=== PATIENT | female | born 1975 | race Caucasian/White ===

== ENCOUNTER 2020-05-28 10:12 | Observation (INO) | payer MEDICAID ==
[2020-05-28] MEDS ORDERED: ASPIRIN 81 MG PO STA (10:20)
[2020-05-28] MEDS ORDERED: MORPHINE SULFATE 2 MG/ML SYRINGE IVP STA (10:24)
[2020-05-28] MEDS ORDERED: NITROGLYCERIN SL TABS 0.4 MG TAB SUBLINGUAL PRN ×2 (10:24→12:39)
[2020-05-28] MEDS ORDERED: LORazepam 2 MG/ML INJ IV STA (10:27)
--- NOTE | 2020-05-28 10:31 | ED ---
Chest Pain HPI - General Source: patient Limitations: no limitations <Kiana Madrigal - Last Filed: 05/28/20 14:29> <Melissa Beebe - Last Filed: 06/02/20 22:19> - General Chief Complaint: Chest Pain Stated Complaint: Light Headed Time Seen by Provider: 05/28/20 10:19 - History of Present Illness Initial Comments: 44-year-old feel presented for left arm pain x ~8 hours and chest pressure x 8AM. Patient states last night she had significant left arm pain. She states she thought she just stepped wrong. Patient states she woke up this morning with chest pressure, a lot of anxiety and felt short of breath. Patient denies any back pain wrapping K sensation she states this is a pressure. She denies diaphoresis. Patient states ever since she's had a stroke she has been very paranoid. Patient admits to history of hypertension, she's occurring every day smoker. Denies known HLD, or CAD. Patient states she is currently having the discomfort. Patient appears anxious. (Kiana Madrigal) - Related Data Home Medications Medication Instructions Recorded Confirmed Aspirin EC [Ecotrin Low Dose] 81 mg PO DAILY 05/28/20 05/28/20 Cholecalciferol (Vitamin D3) 4,000 unit PO DAILY 05/28/20 05/28/20 [Vitamin D3 (4,000 Iu)] Losartan [Cozaar] 50 mg PO DAILY 05/28/20 05/28/20 Potassium Chloride [Klor-Con 20] 40 meq PO DAILY 05/28/20 05/28/20 Potassium Gluconate 198 mg PO ONCE 05/28/20 05/28/20 amLODIPine [Norvasc] 10 mg PO DAILY 05/28/20 05/28/20 hydroCHLOROthiazide 50 mg PO DAILY 05/28/20 05/28/20 medroxyPROGESTERone [Depo-Provera] 150 mg IM Q90D 05/28/20 05/28/20 Previous Rx's Medication Instructions Recorded Nicotine 14Mg/24Hr Patch [Habitrol] 1 patch TRANSDERM DAILY #30 patch 05/29/20 Allergies Allergy/AdvReac Type Severity Reaction Status Date / Time No Known Allergies Allergy Verified 05/28/20 10:58 Review of Systems ROS Other: All systems not noted in ROS Statement are negative. <Kiana Madrigal - Last Filed: 05/28/20 14:29> ROS Other: All systems not noted in ROS Statement are negative. <Melissa Beebe - Last Filed: 06/02/20 22:19> ROS Statement: Those systems with pertinent positive or pertinent negative responses have been documented in the HPI. Past Medical History Additional Past Medical History / Comment(s): Stroke 2018 History of Any Multi-Drug Resistant Organisms: None Reported Past Surgical History: Appendectomy, Section Smoking Status: Current every day smoker Past Alcohol Use History: Daily Past Drug Use History: None Reported - Past Family History Father Family Medical History: CVA/TIA, Myocardial Infarction ([place]) Additional Family Medical History / Comment(s): Father had a MN at the age of 49 yrs. Mother Family Medical History: Thyroid Disorder <Kiana Madrigal - Last Filed: 05/28/20 14:29> General Exam Limitations: no limitations <Kiana Madrigal - Last Filed: 05/28/20 14:29> - General Exam Comments Initial Comments: General: The patient is awake and alert, in no distress Eye: Pupils are equal, round and reactive to light, extra-ocular movements are intact. No nystagmus. There is normal conjunctiva bilaterally. No signs of icterus. Ears, nose, mouth and throat: There are moist mucous membranes and no oral lesions. Neck: The neck is supple, there is no tenderness or JVD. Cardiovascular: There is a regular rate and rhythm. No murmur, rub or gallop is appreciated. Respiratory: Lungs are clear to auscultation, respirations are non-labored, breath sounds are equal. No wheezes, stridor, rales, or rhonchi. Gastrointestinal: Soft, non-distended, non-tender abdomen without masses or organomegaly noted. There is no rebound or guarding present. Musculoskeletal: Normal ROM, no tenderness. Strength 5/5. Sensation intact. radial and DP pulses equal bilaterally 2+. Neurological: A&O x 3. CN II-XII intact, There are no obvious motor or sensory deficits. Coordination appears grossly intact. Speech is normal. Skin: Skin is warm and dry and no rashes or lesions are noted. calf pain no lower extremity edema swelling. Psychiatric: Cooperative, appropriate mood & affect, normal judgment. (Kiana Madrigal) Course Vital Signs 05/28/20 05/28/20 05/28/20 10:15 10:34 10:35 Temperature 97.8 F Pulse Rate 127 H 126 H Respiratory 16 20 20 Rate Blood Pressure 148/100 O2 Sat by Pulse 96 99 Oximetry 05/28/20 05/28/20 10:52 11:46 Temperature Pulse Rate 111 H 113 H Respiratory 18 18 Rate Blood Pressure 141/88 143/98 O2 Sat by Pulse 99 98 Oximetry Chest Pain MDM <Kiana Madrigal - Last Filed: 05/28/20 14:29> <Melissa Beebe - Last Filed: 06/02/20 22:19> - MDM 44yo female presenting for cc of chest discomfort/anxiety. asporin given. nitroglyceriin given. initial troponin negative. CTA negative for dissection. No obvious pulmonary embolism. Patient dimer (-). Pt pain improved. pt appears more relaxed. patient has no additional complaints. upon arrival patient appears well nontoxic in no aute distress. Dr. Beebe agreeable to care plan and admission. (Kiana Madrigal) I was available for consultation in the emergency department. The history and physical exam were done by the midlevel provider. I was consulted for this patients care. I reviewed the case with the midlevel provider and based on their presentation of the patient, I agree with the assessment, medical decision making and plan of care as documented. Chart was dictated using [employer] dictation software. Attempts were made to correct any dictation errors however some typographical errors may persist. Patient was seen during a national state of emergency due to the Covid-19 pandemic. (Melissa Beebe) Disposition Is patient prescribed a controlled substance at d/c from ED?: No Time of Disposition: 12:39 Decision to Admit Reason: Admit from EC Decision Date: 05/28/20 Decision Time: 12:39 <Kiana Madrigal - Last Filed: 05/28/20 14:29> <Melissa Beebe - Last Filed: 06/02/20 22:19> Clinical Impression: Left ovarian cyst, Lightheaded, Chest pressure, Arm pain, left Disposition: ADMITTED IP TO THIS HOSP Condition: Stable
[2020-05-28 10:50] LABS: Basophils % (A) 0 %; Eosinophils # (A) 0.3 k/uL (0-0.7); Eosinophils % (A) 3 %; HCT 43.9 % (34.0-46.0); HGB 15.1 gm/dL (11.4-16.0); Lymphocytes % (A) 11 %; MCH 31.3 pg (25.0-35.0); MCHC 34.4 g/dL (31.0-37.0); MCV 91.1 fL (80.0-100.0); Mean Platelet Volume 6.5; Monocytes # (A) 0.3 k/uL (0-1.0); Monocytes % (A) 4 %; Neutrophils % (A) 80 %; Platelet Count 401 k/uL (150-450); RBC 4.82 m/uL (3.80-5.40); RDW 12.7 % (11.5-15.5); WBC 8.8 k/uL (3.8-10.6)
--- NOTE | 2020-05-28 10:56 | XR ---
EXAMINATION TYPE: XR chest 2V DATE OF EXAM: 05/28/2020 COMPARISON: None HISTORY: 44-year-old female with chest pain TECHNIQUE: PA and lateral views FINDINGS: The cardiomediastinal silhouette, aorta, and pulmonary vasculature are within normal limits. Lungs an d pleural spaces are clear. IMPRESSION: No acute cardiopulmonary process.
[2020-05-28 11:00] LABS: D-Dimer 0.22 mg/L FEU (<0.60); INR 0.9 (<1.2); Partial Thromboplastin Time 22.1 sec (22.0-30.0); Prothrombin Time 9.6 sec (9.0-12.0)
[2020-05-28 11:06] LABS: ALT 31 U/L (4-34); AST 36 U/L (14-36); African American GFR (CKD) >90 (>60 ml/min/1.73 sqM); Albumin 4.6 g/dL (3.5-5.0); Alkaline Phosphatase 92 U/L (38-126); Anion Gap 16 mmol/L; Blood Urea Nitrogen 9 mg/dL (7-17); Calcium 10.3 mg/dL (8.4-10.2); Carbon Dioxide 24 mmol/L (22-30); Chloride 92 mmol/L (98-107); Glucose 184 mg/dL (74-99); Magnesium 2.2 mg/dL (1.6-2.3); Non-African American GFR(CKD) 84 (>60 ml/min/1.73 sqM); Potassium 3.7 mmol/L (3.5-5.1); Sodium 132 mmol/L (137-145); Total Bilirubin 0.7 mg/dL (0.2-1.3); Total Protein 8.1 g/dL (6.3-8.2)
--- NOTE | 2020-05-28 12:27 | CT ---
CT angiogram of the abdominal aorta with runoff HISTORY: Chest pain, arm pain, tingling Helical acquisition obtained through the aorta following dynamic administration 125 cc [id number] IV. Three-dimensional reconstructions performed on an alternate workstation. No comparisons The aorta is normal. There is no aneurysm, no disc dissection, or embolus. The celiac axis, superior mesenteric artery, inferior mesenteric artery, renal arteries are patent. Common iliac, internal and external iliac arteries are patent. Common femoral, deep femoral, superficial femoral arteries are pa tent. Popliteal arteries, trifurcation vessels are patent. The left ovary shows some associated cystic foci. Uterus shows low-attenuation likely due to hepatic steatosis, liver is enlarged. IMPRESSION: Normal aorta and additional findings above.
[2020-05-28] MEDS ORDERED: amLODIPine 10 MG TAB PO SCH (14:45)
[2020-05-28] MEDS ORDERED: POTASSIUM CHLORIDE ER 20 MEQ TAB.ER PO SCH (15:00)
[2020-05-28] MEDS: LOSARTAN 50 MG TAB PO SCH (15:03)
--- NOTE | 2020-05-28 15:20 | P.CRDCN ---
History of Present Illness History of present illness: HISTORY OF PRESENTING ILLNESS This is a pleasant 44-year-old female past medical history significant for hypertension, CVA 2018, chronic nicotine dependence, daily excessive alcohol intake and family history of premature coronary artery disease with her father having an PA at 49 years old. 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 We have been asked to see in consultation for chest pain. States she woke up this morning with a heavy and numb sensation in her left arm. At first this was her only symptom. This morning when on she got into her car to attempt to drive to work and she started feeling very lightheaded like she was going to pass out. She then started to feel short of breath and and discomfort in the left precordial region described as a heavy pressure sensation. She also states she has a history of anxiety and feels as though she is getting more and more scared thinking she was having another stroke. DIAGNOSTICS EKG reveals sinus tachycardia heart rate 122. Chest xray negative for an acute cardiopulmonary process. CT thoracic aorta unremarkable. Laboratory reviewed, CBC unremarkable, d-dimer 0.22, sodium 132, potassium 3.7, creatinine 0.85, magnesium 2.2, cardiac enzymes negative 2. Current cardiac medications include hydrochlorothiazide 50 mg daily, amlodipine 10 mg daily, losartan 50 mg daily, aspirin 81 mg daily and daily potassium supplementation. REVIEW OF SYSTEMS At the time of my exam: CONSTITUTIONAL: Denies fever or chills. CARDIOVASCULAR: Denies chest pain, shortness of breath, orthopnea, PND or palpitations. RESPIRATORY: Denies cough. GASTROINTESTINAL: Denies abdominal pain, diarrhea, constipation, nausea or vomiting. MUSCULOSKELETAL: Denies myalgias. NEUROLOGIC: Denies numbness, tingling, headacbe or weakness. ENDOCRINE: Denies fatigue, weight change, polydipsia or polyurina. GENITOURINARY: Denies burning, hematuria or urgency with micturation. HEMATOLOGIC: Denies history of anemia or bleeding. PHYSICAL EXAMINATION Blood pressure 137/88 heart rate 110 afebrile and maintaining oxygen saturation on room air. CONSTITUTIONAL: No apparent distress. HEENT: Head is normocephalic. Pupils are equal, round. Sclerae anicteric. Mucous membranes of the mouth are moist. No JVD. No carotid bruit. CHEST EXAMINATION: Lungs are clear to auscultation. No chest wall tenderness is noted on palpation or with deep breathing. HEART EXAMINATION: Regular rate and rhythm. S1, S2 heard. No murmurs, gallops or rub. ABDOMEN: Soft, nontender. Positive bowel sounds. EXTREMITIES: 2+ peripheral pulses, no lower extremity edema and no calf tenderness. NEUROLOGIC EXAMINATION: Patient is awake, alert and oriented x3. ASSESSMENT Chest pain Hypertension CVA 2018 Chronic nicotine dependence Excessive daily alcohol intake Obesity, BMI 34 PLAN Continue to obtain serial enzymes to rule out an acute event. Obtain 2-D echocardiogram and Doppler study to assess cardiac structure and function. Check thyroid function. If enzymes are normal we will consider proceeding with stress test in the morning. Tobacco and alcohol cessation recommended. Thank you kindly for this consultation. Nurse Practitioner note has been reviewed, I agree with a documented findings and plan of care. Patient was seen and examined. Past Medical History Past Medical History: Hypertension Additional Past Medical History / Comment(s): Stroke 2018 History of Any Multi-Drug Resistant Organisms: None Reported Past Surgical History: Appendectomy, Section Additional Past Surgical History / Comment(s): Rhinoplasty Past Anesthesia/Blood Transfusion Reactions: No Reported Reaction Smoking Status: Current every day smoker Past Alcohol Use History: Daily Past Drug Use History: None Reported - Past Family History Father Family Medical History: CVA/TIA, Myocardial Infarction ([place]) Additional Family Medical History / Comment(s): Father had a PA at the age of 49 yrs. Mother Family Medical History: Thyroid Disorder Medications and Allergies Home Medications Medication Instructions Recorded Confirmed Type Aspirin EC [Ecotrin Low Dose] 81 mg PO DAILY 05/28/20 05/28/20 History Cholecalciferol (Vitamin D3) 4,000 unit PO DAILY 05/28/20 05/28/20 History [Vitamin D3 (4,000 Iu)] Losartan [Cozaar] 50 mg PO DAILY 05/28/20 05/28/20 History Potassium Chloride [Klor-Con 20] 40 meq PO DAILY 05/28/20 05/28/20 History Potassium Gluconate 198 mg PO ONCE 05/28/20 05/28/20 History amLODIPine [Norvasc] 10 mg PO DAILY 05/28/20 05/28/20 History hydroCHLOROthiazide 50 mg PO DAILY 05/28/20 05/28/20 History medroxyPROGESTERone [Depo-Provera] 150 mg IM Q90D 05/28/20 05/28/20 History Allergies Allergy/AdvReac Type Severity Reaction Status Date / Time No Known Allergies Allergy Verified 05/28/20 10:58 Physical Exam Vitals: Vital Signs Temp Pulse Pulse Resp BP BP Pulse Ox 05/28/20 14:26 97.5 F L 110 H 16 137/88 97 05/28/20 13:32 98.4 F 108 H 18 122/96 97 05/28/20 11:46 113 H 18 143/98 98 05/28/20 10:52 111 H 18 141/88 99 05/28/20 10:35 20 05/28/20 10:34 126 H 20 148/100 99 05/28/20 10:15 97.8 F 127 H 16 96 Intake and Output 05/28/20 05/28/20 05/28/20 06:59 14:59 22:59 Other: # Voids 1 Weight 90.718 kg Results 05/28/20 10:31 05/28/20 10:31 Cardiac Enzymes 05/28/20 05/28/20 05/28/20 Range/Units 10:31 10:31 13:44 AST 36 (14-36) U/L Troponin I <0.012 <0.012 (0.000-0.034) ng/mL Coagulation 05/28/20 Range/Units 10:31 PT 9.6 (9.0-12.0) sec APTT 22.1 (22.0-30.0) sec CBC 05/28/20 Range/Units 10:31 WBC 8.8 (3.8-10.6) k/uL RBC 4.82 (3.80-5.40) m/uL Hgb 15.1 (11.4-16.0) gm/dL Hct 43.9 (34.0-46.0) % Plt Count 401 (150-450) k/uL Comprehensive Metabolic Panel 05/28/20 Range/Units 10:31 Sodium 132 L (137-145) mmol/L Potassium 3.7 (3.5-5.1) mmol/L Chloride 92 L (98-107) mmol/L Carbon Dioxide 24 (22-30) mmol/L BUN 9 (7-17) mg/dL Creatinine 0.85 (0.52-1.04) mg/dL Glucose 184 H (74-99) mg/dL Calcium 10.3 H (8.4-10.2) mg/dL AST 36 (14-36) U/L ALT 31 (4-34) U/L Alkaline Phosphatase 92 (38-126) U/L Total Protein 8.1 (6.3-8.2) g/dL Albumin 4.6 (3.5-5.0) g/dL Current Medications Generic Name Dose Route Start Last Admin Trade Name Freq PRN Reason Stop Dose Admin Amlodipine Besylate 10 mg 05/28/20 14:45 05/28/20 15:03 Amlodipine 10 Mg Tab PO 10 mg DAILY TUCKER Administration Aspirin 81 mg 05/29/20 09:00 Aspirin 81 Mg PO DAILY [facility] Cholecalciferol 100 mcg 05/29/20 09:00 Cholecalciferol 25 Mcg (1000 Iu) Tablet PO DAILY [facility] Hydrochlorothiazide 50 mg 05/28/20 14:45 05/28/20 15:03 Hydrochlorothiazide 50 Mg Tab PO 50 mg DAILY TUCKER Administration Losartan Potassium 50 mg 05/28/20 14:55 05/28/20 15:03 Losartan 50 Mg Tab PO 50 mg DAILY TUCKER Administration Nitroglycerin 0.4 mg 05/28/20 10:24 05/28/20 10:32 Nitroglycerin Sl Tabs 0.4 Mg Tab SUBLINGUAL 0.4 mg Q10M PRN Administration Chest Pain Nitroglycerin 0.4 mg 05/28/20 12:39 Nitroglycerin Sl Tabs 0.4 Mg Tab SUBLINGUAL Q5M PRN Chest Pain Potassium Chloride 40 meq 05/28/20 15:00 05/28/20 15:03 Potassium Chloride Er 20 Meq Tab.Er PO 40 meq DAILY TUCKER Administration Intake and Output 05/28/20 05/28/20 05/28/20 06:59 14:59 22:59 Other: # Voids 1 Weight 90.718 kg Patient Weight 05/29/20 06:59 Weight 90.718 kg 05/28/20 10:31 05/28/20 10:31
[2020-05-29 05:24] VITALS: RESP 16
[2020-05-29 07:38] VITALS: BP 124/82; PULSE 89; TEMP 98.1
[2020-05-29] MEDS: LOSARTAN 50 MG TAB PO SCH (08:14)
[2020-05-29] MEDS ORDERED: POTASSIUM CHLORIDE ER 20 MEQ TAB.ER PO SCH (09:00)
[2020-05-29] MEDS ORDERED: LOSARTAN 50 MG TAB PO SCH (09:00)
[2020-05-29] MEDS ORDERED: ASPIRIN 81 MG PO SCH (09:00)
[2020-05-29] MEDS ORDERED: CHOLECALCIFEROL 25 MCG (1000 IU) TABLET PO SCH (09:00)
[2020-05-29] MEDS ORDERED: ASPIRIN 325 MG TAB PO SCH (09:00)
[2020-05-29 09:28] LABS: Chol/HDL Ratio 2.7; LDL Cholesterol,Calculated 100.2 mg/dL (0.0-131.0); VLDL Calculation 11.8 mg/dL (5.00-40.00)
--- NOTE | 2020-05-29 10:29 | P.PN ---
Subjective HISTORY OF PRESENTING ILLNESS This is a pleasant 44-year-old female past medical history significant for hypertension, CVA 2018, chronic nicotine dependence, daily excessive alcohol intake and family history of premature coronary artery disease with her father having an HI at 49 years old. 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 She is seen and examined sitting up in bed in no acute distress. She denies any further symptoms of chest discomfort. She has no shortness of breath, dizziness or palpitations. She has been up ambulating in the room and to the bathroom without incident. Blood pressure 124/82 heart rate 89 afebrile maintaining oxygen saturation on room air. Laboratory data reviewed, cardiac enzymes negative 3, TSH 2.43, LDL 100 and HDL 66. Currently maintained on amlodipine 10 mg daily, aspirin 81 mg daily, hydrochlorothiazide 50 mg daily and losartan 5 0 mg daily. PHYSICAL EXAMINATION CONSTITUTIONAL: No apparent distress. HEENT: Head is normocephalic. Pupils are equal, round. Sclerae anicteric. Mucous membranes of the mouth are moist. No JVD. No carotid bruit. CHEST EXAMINATION: Lungs are clear to auscultation. No chest wall tenderness is noted on palpation or with deep breathing. HEART EXAMINATION: Regular rate and rhythm. S1, S2 heard. No murmurs, gallops or rub. EXTREMITIES: 2+ peripheral pulses, no lower extremity edema and no calf ten derness. ASSESSMENT Chest pain Hypertension CVA 2018 Chronic nicotine dependence Excessive daily alcohol intake Obesity, BMI 34 PLAN Proceed with stress echocardiogram to assess for stress-induced cardiac ischemia. A stress test is normal she may be discharged from a cardiac perspective. Nurse Practitioner note has been reviewed, I agree with a documented findings and plan of care. Patient was seen and examined. Objective - Vital Signs Vital signs: Vital Signs Temp 98.1 F 05/29/20 07:00 Pulse 89 05/29/20 07:00 Resp 16 05/29/20 08:00 BP 124/82 05/29/20 07:00 Pulse Ox 96 05/29/20 07:00 Intake & Output 05/28/20 05/29/20 05/29/20 18:59 06:59 18:59 Intake Total 118 Balance 118 Weight 90.718 kg 90.72 kg Intake: Oral 118 Other: Voiding Method Toilet Toilet # Voids 1 1 - Labs CBC & Chem 7: 05/28/20 10:31 05/28/20 10:31 Labs: Abnormal Lab Results - Last 24 Hours (Table) 05/28/20 05/29/20 Range/Units 10:31 04:59 Sodium 132 L (137-145) mmol/L Chloride 92 L (98-107) mmol/L Glucose 184 H (74-99) mg/dL Calcium 10.3 H (8.4-10.2) mg/dL HDL Cholesterol 66.0 H (40.0-60.0) mg/dL
[2020-05-29] MEDS ORDERED: ENOXAPARIN 40 MG/0.4 ML SYRINGE SQ SCH (11:30)
--- NOTE | 2020-05-29 12:34 | ECHOF ---
Referral Reason: MEASUREMENTS -------- HEIGHT: 162.6 cm WEIGHT: 90.7 kg BP: RVIDd: 2.9 cm (< 3.3) IVSd: 0.8 cm (0.6 - 1.1) LVIDd: 3.6 cm (3.9 - 5.3) LVPWd: 1.1 cm (0.6 - 1.1) IVSs: 1.2 cm LVIDs: 2.5 cm LVPWs: 1.3 cm LAESV Index (A-L): 23.33 ml/m Ao Diam: 2.5 cm (2.0 - 3.7) AV Cusp: 1.5 cm (1.5 - 2.6) LA Diam: 3.3 cm (2.7 - 3.8) MV E Chuck: 0.61 m/s MV DecT: 148 ms MV A Chuck: 0.58 m/s MV E/A Ratio: 1.05 RAP: 5.00 mmHg RVSP: 11.59 mmHg FINDINGS -------- Sinus rhythm. This was a technically adequate study. LV size, wall thickness and systolic function are normal, with an EF greater than 55%. The left shantel tricular size is normal. The right ventricle is normal in size. Normal LA size by volume 22+/-6 ml/m2. The right atrial size is normal. The aortic valve is trileaflet, and appears structurally normal. No aortic stenosis or regurgitation. The mitral valve is normal. Mild mitral regurgitation is present. The tricuspid valve appears structurally normal. Mild tricuspid regurgitation present. Right vent ricular systolic pressure is normal at < 35 mmHg. There is no pulmonic regurgitation present. The aortic root size is normal. There is no pericardial effusion. CONCLUSIONS -------- 1. LV size, wall thickness and systolic function are normal, with an EF greater than 55%. 2. Normal LA size by volume 22+/-6 ml/m2. 3. The aortic valve is trileaflet, and appears structurally normal. No aortic stenosis or regurgitati on. 4. Mild mitral regurgitation is present. 5. Mild tricuspid regurgitation present. 6. There is no pericardial effusion. CLEANING ASSOCIATE: Whit Katz RDCS
--- NOTE | 2020-05-29 14:23 | ECHOS ---
STRESS ECHOCARDIOGRAM LUMASON: N/A Vial INDICATIONS: Chest pain MEDICATIONS: BASELINE HEART RATE: 97 BASELINE BLOOD PRESSURE: 114/75 MAXIMUM HEART RATE: 107 MAXIMUM BLOOD PRESSURE: 135/83 85% MPHR: 150 100% MPHR: 176 METS: 7.1 MAXIMUM STAGE REACHED: 2 TOTAL EXERCISE TIME: 6 minutes CLINICAL INFORMATION: Baseline rhythm is sinus mechanism, rate 97, normal axis and intervals, minor nonspecific ST-T wave changes. Baseline blood pressure 114/75 mmHg. The patient exercised on Meir protocol for 6 minutes reaching peak rate 107 beats per minute which is equal to 96% maximum predicted heart rate. Peak blood pressure 135/83 mmHg. Test was terminated secondary to fatigue. There was no chest pain. Electrocardiograph monitoring revealed no evidence of diagnostic ischemic ST deviation. Baseline echocardiogram revealed normal wall motion. At peak exercise, there was normal wall motion augmentation with no hypokinesis or dyskinesis. CONCLUSION: 1. Decreased exercise tolerance with normal electrocardiographic response to exercise. 2. Normal stress echocardiogram with no evidence of stress-induced ischemia. MMODL / IJN: [id number] /
--- NOTE | 2020-05-29 22:52 | P.HPIM ---
History of Present Illness H&P Date: 05/29/20 Chief Complaint: Chest tightness History of presenting complaint: This is a 44-year-old patient of Dr. De La Rosa. Chronic stable medical conditions include hypertension, stroke in 2018 with no residual, anxiety, panic disorder, patient is an active cigarette smoker and also has about 6 beers a day. Patient presents with Yuniel symptoms she not showed was anxiety or cardiac. She is feeling chest tightness and felt a heaviness in the head and arms were numb for a bit foggy. [place] very anxious. Had a fluttering sensation of the heart. Very anxious. Decided to come to getting checked in. She is also going on for some stress with his significant other with whom she lives. Review of systems: GEN.: None EYES: None HEENT: None NECK: None RESPIRATORY: Occasional short of breath CARDIOVASCULAR: As above GASTROINTESTINAL: None GENITOURINARY: None MUSCULOSKELETAL: None LYMPHATICS: None HEMATOLOGICAL: None PSYCHIATRY: Very anxious NEUROLOGICAL: None Past medical history to include: Hypertension, stroke in 2018 with no residual, anxiety, panic disorder Social history: Lives with her boyfriend. Smokes half a pack a day. 6 beers a day. Works as a secretary to [employer] Family history: Father had a heart attack at age of 49 Physical examination: VITAL SIGNS: 98.1, 89, 16, 124/82, 96% room air GENERAL: BMI 34.3, sitting up anxious. EYES: Pupils equal. Conjunctiva normal. HEENT: External appearance of nose and ears normal, oral cavity grossly normal. NECK: JVD not raised; masses not palpable. HEART: First and second heart sounds are normal; no edema. LUNGS: Respiratory rate increased, decreased breath sounds. ABDOMEN: Soft, nontender, liver spleen not palpable, no masses palpable. PSYCH: Alert and oriented x3; mood and affect anxiousl. NEUROLOGICAL: Cranial nerves grossly intact; no facial asymmetry, power and sensation grossly intact. LYMPHATICS: No lymph nodes palpable in the axilla and neck INVESTIGATIONS, reviewed in the clinical context: White count 8.8 hemoglobin 15.1 platelets 401 potassium 3.7 creatinine 0.85 Troponin I 3 negative LDL 100.2 TSH 2.4 Coronavirus [PCR]-not detected EKG tracing personally reviewed by me-sinus tachycardia Chest x-ray film personally reviewed by me-slight hyperinflation no infiltrate CT angiogram of the abdominal aorta with runoff-normal Assessment and plan: -Atypical chest pain. Possibly psychosomatic. Do not cardiac risk factors of positive family history smoking hypertension he to rule out a cardiac cause. Troponins have been negative. Cardiology consulted. Stress test ordered. Placed on aspirin -Essential hypertension, continue antihypertensive -Chronic nicotine dependence. Start nicotine patch. -Anxiety disorder not otherwise specified -Panic disorder -Obesity BMI 34.3. Follow-up with family doctor. Smoke cessation counseling: This was done with the patient. Nicotine patch is being given. More than 3 minutes was spent for this Past Medical History Past Medical History: Hypertension Additional Past Medical History / Comment(s): Stroke 2017 History of Any Multi-Drug Resistant Organisms: None Reported Past Surgical History: Appendectomy, Section Additional Past Surgical History / Comment(s): Rhinoplasty Past Anesthesia/Blood Transfusion Reactions: No Reported Reaction Smoking Status: Current every day smoker Past Alcohol Use History: Daily Past Drug Use History: None Reported - Past Family History Father Family Medical History: CVA/TIA, Myocardial Infarction (IA) Additional Family Medical History / Comment(s): Father had a IA at the age of 49 yrs. Mother Family Medical History: Thyroid Disorder Medications and Allergies Home Medications Medication Instructions Recorded Confirmed Type Aspirin EC [Ecotrin Low Dose] 81 mg PO DAILY 05/28/20 05/28/20 History Cholecalciferol (Vitamin D3) 4,000 unit PO DAILY 05/28/20 05/28/20 History [Vitamin D3 (4,000 Iu)] Losartan [Cozaar] 50 mg PO DAILY 05/28/20 05/28/20 History Potassium Chloride [Klor-Con 20] 40 meq PO DAILY 05/28/20 05/28/20 History Potassium Gluconate 198 mg PO ONCE 05/28/20 05/28/20 History amLODIPine [Norvasc] 10 mg PO DAILY 05/28/20 05/28/20 History hydroCHLOROthiazide 50 mg PO DAILY 05/28/20 05/28/20 History medroxyPROGESTERone [Depo-Provera] 150 mg IM Q90D 05/28/20 05/28/20 History Nicotine 14Mg/24Hr Patch [Habitrol] 1 patch TRANSDERM DAILY #30 patch 05/29/20 Rx Allergies Allergy/AdvReac Type Severity Reaction Status Date / Time No Known Allergies Allergy Verified 05/28/20 10:58 Physical Exam Vitals: Vital Signs Temp Pulse Pulse Resp BP BP Pulse Ox 05/29/20 08:00 16 05/29/20 07:00 98.1 F 89 16 124/82 96 05/29/20 02:00 97.6 F 95 16 111/79 100 05/28/20 20:00 98.0 F 102 H 18 106/58 99 05/28/20 14:26 97.5 F L 110 H 16 137/88 97 05/28/20 13:32 98.4 F 108 H 18 122/96 97 05/28/20 11:46 113 H 18 143/98 98 05/28/20 10:52 111 H 18 141/88 99 Intake and Output 05/28/20 05/29/20 05/29/20 22:59 06:59 14:59 Intake Total 118 Balance 118 Intake: Oral 118 Other: Voiding Method Toilet Toilet # Voids 1 1 Weight 90.72 kg Results CBC & Chem 7: 05/28/20 10:31 05/28/20 10:31 Labs: Abnormal Lab Results - Last 24 Hours (Table) 05/28/20 05/29/20 Range/Units 10:31 04:59 Sodium 132 L (137-145) mmol/L Chloride 92 L (98-107) mmol/L Glucose 184 H (74-99) mg/dL Calcium 10.3 H (8.4-10.2) mg/dL HDL Cholesterol 66.0 H (40.0-60.0) mg/dL Thrombosis Risk Factor Assmnt - Choose All That Apply Any of the Below Risk Factors Present?: Yes Each Factor Represents 1 point: Age 41-60 years, Obesity (BMI >25) Other Risk Factors: No Other congenital or acquired thrombophilia - If yes, enter type in comment: No Thrombosis Risk Factor Assessment Total Risk Factor Score: 2 Thrombosis Risk Factor Assessment Level: Low Risk
--- NOTE | 2020-05-29 22:56 | P.DS ---
Providers Date of admission: 05/28/20 12:56 Expected date of discharge: 05/29/20 Attending physician: Jomar Brar Consults: 05/28/20 12:39 Consult Physician Urgent Consulting Provider: Valentin Mack Consult Reason/Comments: chest discomfort/arm pain Do you want consulting provider notified?: Yes Primary care physician: [facility] Course: Chief Complaint: Chest tightness History of presenting complaint: This is a 44-year-old patient of Dr. De La Rosa. Chronic stable medical conditions include hypertension, stroke in 2018 with no residual, anxiety, panic disorder, patient is an active cigarette smoker and also has about 6 beers a day. Patient presents with Yuniel symptoms she not showed was anxiety or cardiac. She is feeling chest tightness and felt a heaviness in the head and arms were numb for a bit foggy. [place] very anxious. Had a fluttering sensation of the heart. Very anxious. Decided to come to getting checked in. She is also going on for some stress with his significant other with whom she lives. Admitted with atypical chest pain. Troponins were negative. Stress echocardiogram was negative per cardiology. Cleared for discharge. It was felt that patient never had a panic attack. Patient counseled about the same. Director Of Solutions Architecture: Dr. Ness from cardiology Past medical history to include: Hypertension, stroke in 2018 with no residual, anxiety, panic disorder Social history: Lives with her boyfriend. Smokes half a pack a day. 6 beers a day. Works as a receptionist secretary Family history: Father had a heart attack at age of 49 Physical examination: VITAL SIGNS: 98.1, 89, 16, 124/82, 96% room air GENERAL: BMI 34.3, sitting up anxious. EYES: Pupils equal. Conjunctiva normal. HEENT: External appearance of nose and ears normal, oral cavity grossly normal. NECK: JVD not raised; masses not palpable. HEART: First and second heart sounds are normal; no edema. LUNGS: Respiratory rate increased, decreased breath sounds. ABDOMEN: Soft, nontender, liver spleen not palpable, no masses palpable. PSYCH: Alert and oriented x3; mood and affect anxiousl. INVESTIGATIONS, reviewed in the clinical context: White count 8.8 hemoglobin 15.1 platelets 401 potassium 3.7 creatinine 0.85 Troponin I 3 negative LDL 100.2 TSH 2.4 Coronavirus [PCR]-not detected EKG tracing personally reviewed by me-sinus tachycardia Chest x-ray film personally reviewed by me-slight hyperinflation no infiltrate CT angiogram of the abdominal aorta with runoff-normal 2-D echocardiogram-EF 55% Stress echocardiogram-decreased exercise tolerance with normal response to exercise. No evidence of stress-induced ischemia Assessment and plan: -Atypical chest pain. Possibly psychosomatic. From panic attack -Essential hypertension, continue antihypertensive -Chronic nicotine dependence. Start nicotine patch. -Anxiety disorder not otherwise specified -Panic disorder -Obesity BMI 34.3. Follow-up with family doctor. -Alcohol use disorder Disposition: Home Patient Condition at Discharge: Stable Plan - Discharge Summary Discharge Rx Participant: No New Discharge Prescriptions: New Nicotine 14Mg/24Hr Patch [Habitrol] 1 patch TRANSDERM DAILY #30 patch Continue hydroCHLOROthiazide 50 mg PO DAILY amLODIPine [Norvasc] 10 mg PO DAILY Potassium Gluconate 198 mg PO ONCE Losartan [Cozaar] 50 mg PO DAILY Aspirin EC [Ecotrin Low Dose] 81 mg PO DAILY Potassium Chloride [Klor-Con 20] 40 meq PO DAILY medroxyPROGESTERone [Depo-Provera] 150 mg IM Q90D Cholecalciferol (Vitamin D3) [Vitamin D3 (4,000 Iu)] 4,000 unit PO DAILY Discharge Medication List Aspirin EC [Ecotrin Low Dose] 81 mg PO DAILY 05/28/20 [History] Cholecalciferol (Vitamin D3) [Vitamin D3 (4,000 Iu)] 4,000 unit PO DAILY 05/28/20 [History] Losartan [Cozaar] 50 mg PO DAILY 05/28/20 [History] Potassium Chloride [Klor-Con 20] 40 meq PO DAILY 05/28/20 [History] Potassium Gluconate 198 mg PO ONCE 05/28/20 [History] amLODIPine [Norvasc] 10 mg PO DAILY 05/28/20 [History] hydroCHLOROthiazide 50 mg PO DAILY 05/28/20 [History] medroxyPROGESTERone [Depo-Provera] 150 mg IM Q90D 05/28/20 [History] Nicotine 14Mg/24Hr Patch [Habitrol] 1 patch TRANSDERM DAILY #30 patch 05/29/20 [Rx] Follow up Appointment(s)/Referral(s): Gina Ness MD [STAFF PHYSICIAN] - 1 Week (Cardiology office will call with appointment time) Fly De La Rosa MD [Primary Care Provider] - 06/05/20 11:30 am Patient Instructions/Handouts: Chest Pain (DC), How to Stop Smoking (DC), Heart Healthy Diet (DC) Activity/Diet/Wound Care/Special Instructions: Alcohol cessation Discharge Disposition: HOME SELF-CARE
== END 2020-05-29 13:40 | disposition home or self-care (01) ==
LOC: EC 10:12 → 6NMEDSUR 12:56
PROVIDERS: ADMIT Hospitalist; ATTEND Hospitalist
DX: R07.89 Other chest pain (principal); R20.0 Anesthesia of skin; R29.898 Other symptoms and signs involving the musculoskeletal system; I10 Essential (primary) hypertension; F17.210 Nicotine dependence, cigarettes, uncomplicated; F41.0 Panic disorder [episodic paroxysmal anxiety]; F41.9 Anxiety disorder, unspecified; E66.9 Obesity, unspecified; N83.202 Unspecified ovarian cyst, left side; Z72.89 Other problems related to lifestyle; Z20.822 Contact with and (suspected) exposure to COVID-19; Z86.73 Personal history of transient ischemic attack (TIA), and cerebral infarction without residual deficits; Z79.82 Long term (current) use of aspirin; Z79.899 Other long term (current) drug therapy; Z79.3 Long term (current) use of hormonal contraceptives; Z90.49 Acquired absence of other specified parts of digestive tract; Z98.890 Other specified postprocedural states; Z63.0 Problems in relationship with spouse or partner; Z68.34 Body mass index [BMI] 34.0-34.9, adult; Z71.6 Tobacco abuse counseling; Z82.3 Family history of stroke; Z82.49 Family history of ischemic heart disease and other diseases of the circulatory system; Z83.49 Family history of other endocrine, nutritional and metabolic diseases
CPT/HCPCS: 93005 ×2; 99285; 36415; 93306; 93351; 85379; 80061; 80053; 84443; 83735; 84484; 85025; 85610; 85730; 87635; 71046; 75635; 71275; G0378 ×2; Q9967